=== PATIENT | female | born 1950 | race American Indian/Alaskan Native ===

== ENCOUNTER 2016-07-20 11:09 | Outpatient (CLI) | payer MEDICARE ==
--- NOTE | 2016-07-20 14:02 | Fluoroscopy Report ---
GI series: The patient swallows liquid barium without difficulty. The esophagus is anatomically unremarkable and there is normal peristalsis. No evidence of hiatus hernia with Valsalva maneuver. No evidence of gastroesophageal reflux with water swallowing. The anatomy of the stomach and duodenum are normal. Impression: Normal exam.
== END 2016-07-20 11:10 | disposition home or self-care (01) ==
LOC: FLUORO 11:09
PROVIDERS: ATTEND Internal Medicine Gastroenterology
DX: K27.9 Peptic ulcer, site unspecified, unspecified as acute or chronic, without hemorrhage or perforation (principal); R63.4 Abnormal weight loss; R14.0 Abdominal distension (gaseous); R10.9 Unspecified abdominal pain
CPT/HCPCS: 74241